=== PATIENT | male | born 1975 | race Caucasian/White ===

== ENCOUNTER 2017-12-30 22:40 | Observation (INO) ==
[2017-12-30 23:11] LABS: Basophils % 0.4 % (0.1-2.0); Eosinophils # 0.1 K/mm3 (0.0-0.4); Eosinophils % 1.4 % (0.1-12.0); Hematocrit 44.7 % (42.0-52.0); Lymphocytes # 3.5 K/mm3 (0.7-4.5); Lymphocytes % 42.4 % (10-50); Mean Corpuscular HGB Conc 33.5 g/dL (31.8-35.4); Mean Corpuscular Hemoglobin 28.5 pg (27.0-31.2); Mean Platelet Volume 6.9 fl (7.4-10.4); Monocytes # 0.4 K/mm3 (0.1-1.0); Monocytes % 5.3 % (1.7-9.3); Neutrophils # 4.1 K/mm3 (1.8-7.8); Neutrophils % 50.4 % (37.0-80.0); Platelet Count 431 K/mm3 (142-424); Red Blood Count 5.26 M/mm3 (4.60-6.20); Red Cell Distribution Width 12.8 % (11.5-17.5); White Blood Count 8.2 K/mm3 (4.8-10.8)
[2017-12-30 23:22] LABS: Anion Gap 12.5 mEq/L (5-15); Blood Urea Nitrogen 10 mg/dL (7-18); Calcium 8.8 mg/dL (8.5-10.1); Carbon Dioxide 28 mmol/L (21.0-32.0); Chloride 101 mmol/L (98-107); Glucose 97 mg/dL (74-106); Potassium 3.5 mmoL/L (3.5-5.1); Sodium 138 mmol/L (136-145)
--- NOTE | 2017-12-30 23:25 | Emergency Department Note ---
ED Disposition Clinical Impression: Muscle weakness of right upper extremity Hypertension Qualifiers: Hypertension type: essential hypertension Qualified Code(s): I10 - Essential (primary) hypertension Disposition: Admitted as Observation Condition on Discharge: Fair - Critical Care Critical Care Time: No Attestation: On 12/30/17, the high probability of a clinically significant, sudden or life threatening deterioration of the following system(s) required my full and direct attention, intervention and personal management. The time I documented below is in addition to time spent performing reported procedures but includes the following listed in this critical care notation. Medical Decision Making - Medical Records Medical records reviewed: Yes: I reviewed the patient's medical records. - Kavin Inquiry Pt receiving controlled substance: No Kavin was queried for this patient: No Vital Signs: 12/30/17 22:40 12/31/17 00:01 12/31/17 00:30 Temperature 98.0 F Temperature Source Oral Pulse Rate Pulse Rate [Right Radial] 98 H 92 H 92 H Respiratory Rate 12 18 18 Blood Pressure Blood Pressure [Right Arm] 211/136 H 196/128 H 153/105 H Blood Pressure Mean [Right Arm] 161 150 121 Blood Pressure Source Blood Pressure Source [Right Arm] Automatic Cuff Automatic Cuff Automatic Cuff Blood Pressure Position Blood Pressure Position [Right Arm] Sitting Supine Supine 02 Sat by Pulse Oximetry 97 96 96 Oxygen Delivery Method Room Air Room Air Room Air 12/31/17 01:00 12/31/17 01:30 12/31/17 01:37 Temperature 98.0 F Temperature Source Oral Pulse Rate 84 Pulse Rate [Right Radial] 84 88 Respiratory Rate 18 18 18 Blood Pressure 150/104 H Blood Pressure [Right Arm] 150/104 H 166/114 H Blood Pressure Mean [Right Arm] 119 131 Blood Pressure Source Automatic Cuff Blood Pressure Source [Right Arm] Automatic Cuff Automatic Cuff Blood Pressure Position Sitting Blood Pressure Position [Right Arm] Supine Supine 02 Sat by Pulse Oximetry 96 98 Oxygen Delivery Method Room Air Room Air Room Air - Lab Data Lab Results 12/30/17 22:55: WBC 8.2, RBC 5.26, Hgb 15.0, Hct 44.7, MCV 85.0, MCH 28.5, MCHC 33.5, RDW 12.8, Plt Count 431 H, MPV 6.9 L, Neut % (Auto) 50.4, Lymph % (Auto) 42.4, [place] % (Auto) 5.3, Eos % (Auto) 1.4, Baso % (Auto) 0.4, Neut # (Auto) 4.1, Lymph # (Auto) 3.5, [place] # (Auto) 0.4, Eos # (Auto) 0.1, Baso # (Auto) 0.0 12/30/17 22:55: Sodium 138, Potassium 3.5, Chloride 101, Carbon Dioxide 28, Anion Gap 12.5, BUN 10, Creatinine 1.02, Estimated Creat Clear 104, Estimated GFR 79, Est GFR ( Amer) 96, Glucose 97, Calcium 8.8, Troponin I < 0.02 Result diagrams: 12/30/17 22:55 12/30/17 22:55 Orders (Tests/Meds): ED MEDICATIONS Generic Name Dose Route Start Last Admin Trade Name Freq PRN Reason Stop Dose Admin Lisinopril 10 mg 12/31/17 09:00 12/31/17 01:30 Zestril 10mg Tablet PO 01/30/18 08:59 10 mg DAILY JOHNY Administration Discontinued Medications Generic Name Dose Route Start Last Admin Trade Name Freq PRN Reason Stop Dose Admin Clonidine HCl 0.2 mg 12/30/17 23:20 12/30/17 23:49 Clonidine 0.1mg Tablet PO 12/30/17 23:21 0.2 mg ONCE ONE Administration ORDERS Category Date Time Status CT head/brain wo con Stat Cat Scan 12/30/17 22:55 Taken XR chest 2V Stat Exams 12/30/17 22:52 Taken 12-lead EKG Request [ECG Request by Dr/Nse] Stat Y 12/30/17 22:55 Ordered - CT Data CT Scan: Head Time Received: 01:[address] Reviewed: Yes: I have reviewed the patient's CT results, I have viewed the radiologist's interpretation Findings Narrative: Non specific focalasymmetric density in the white matter adjacent to the frotal horn of right lateral ventricle.MRI recommended - Physician Consults Physician Consulted: Rosanne Time: 01:20 Reason -: Admission, Pt condition Comment/Response: Admit Observation Neuro HPI - General Chief Complaint: Weakness Stated Complaint: Right arm weakness Time Seen by Provider: 12/30/17 23:22 Mode of Arrival: Ambulatory Limitations: No Limitations Description of Symptoms (Recalled from ER Triage Doc. by RN): Pt reports right arm weakness that started at 0800 this morning. No motor deficits noted. Pt. denies changes in speech or other symptoms. - History of Present Illness Onset (ago): day(s) (1) Timing confirmed by: spouse Location: right arm History of same: No Severity: mild Quality: weak, constant Relieving factors: none Exacerbating factors: none Context: sudden onset On Anticoagulants: No Associated symptoms: denies other symptoms Treatments Prior to Arrival: none - Related Data Home Medications: Home Medications Medication Instructions Recorded Confirmed No Known Home Medications 12/21/17 12/30/17 Allergies/Adverse Reactions: Allergies Allergy/AdvReac Type Severity Reaction Status Date / Time No Known Allergies Allergy Verified 12/30/17 22:51 Stroke Alert/NIH Score - LOC Stroke Alert: No H History I have reviewed the patient's past medical history: Yes - Social History Smoking Status: Never smoker Alcohol Intake: never Occupational Status: employed - Psychiatric History Expresses thoughts of harming self/others: None Suicide Plan Description: No Plan Family Hx:: Non-contributory ROS Obtained: Yes All systems reviewed & no additional complaints - Constitutional Constitutional: Reports system reviewed and no additional complaints, except as docu - Eyes Eyes: Reports system reviewed and no additional complaints, except as docu - Cardiovascular Cardiovascular: Reports system reviewed and no additional complaints, except as docu - Respiratory Respiratory: Yes system reviewed and no additional complaints, except as docu - Gastrointestinal Gastrointestingal: Reports: system reviewed and no additional complaints, except as docu - Musculoskeletal Musculoskeletal: Reports muscle weakness (RUE) - Integumentary/Breasts Skin/Breast: Reports system reviewed and no additional complaints, except as docu - Neurologic Neurologic: Denies unsteadiness, Denies dizziness, Reports focal weakness, Denies headache(s), Denies numbness, Reports weakness Physical Exam - General General appearance: alert, in no apparent distress - Head Head exam: atraumatic, normocephalic, normal inspection - Eye Eye exam: Present: normal appearance, PERRL, EOMI - Respiratory Respiratory exam: Present: normal lung sounds bilaterally. Absent: respiratory distress - Cardiovascular Cardiovascular exam: Present: regular rate, normal rhythm. Absent: JVD - Abdominal Exam Abdominal exam: Present: soft, normal bowel sounds. Absent: distention, tenderness, guarding - Extremities Exam Extremities exam: Present: normal inspection, full ROM, normal capillary refill. Absent: calf tenderness - Neurological Exam Neurological exam: Present: alert, oriented X3, CN II-XII intact, normal gait, reflexes normal - Psychiatric Psychiatric exam: Present: normal affect, normal mood - Skin Skin exam: Present: warm, dry, intact, normal color
[2017-12-31 05:59] LABS: Basophils % 0.2 % (0.1-2.0); Eosinophils % 0.6 % (0.1-12.0); Hematocrit 39.1 % (42.0-52.0); Hemoglobin 13.8 g/dL (14.1-18.0); Lymphocytes # 1.6 K/mm3 (0.7-4.5); Lymphocytes % 21.7 % (10-50); Mean Corpuscular HGB Conc 35.3 g/dL (31.8-35.4); Mean Corpuscular Hemoglobin 29.8 pg (27.0-31.2); Mean Corpuscular Volume 84.5 fl (80-94); Mean Platelet Volume 6.8 fl (7.4-10.4); Monocytes # 0.4 K/mm3 (0.1-1.0); Monocytes % 4.9 % (1.7-9.3); Neutrophils # 5.4 K/mm3 (1.8-7.8); Neutrophils % 72.6 % (37.0-80.0); Platelet Count 357 K/mm3 (142-424); Red Blood Count 4.63 M/mm3 (4.60-6.20); Red Cell Distribution Width 12.7 % (11.5-17.5); White Blood Count 7.5 K/mm3 (4.8-10.8)
[2017-12-31 06:34] LABS: Anion Gap 11.8 mEq/L (5-15); Calcium 8.6 mg/dL (8.5-10.1); Chol/HDL Ratio 4.3 (1-3.5); Potassium 3.8 mmoL/L (3.5-5.1)
--- NOTE | 2017-12-31 08:35 | History & Physical Report ---
*Admission Date: 12/31/17 <Farrah Rios 12/31/17 08:39> *Chief complaint: right arm weakness <Farrah Rios 12/31/17 08:39> *History of present illness: Mr. Luis is a 42-year-old male with no significant medical history who woke up at 8 AM yesterday morning with a very weak right arm. He states he had no pain, it was just difficult for him to move his arm. He states the whole arm felt tired and weak and it remained this way throughout the day. He decided to present to the emergency room for evaluation. Upon presentation, he states his blood pressure was 211/130. He was given medication to bring down his blood pressure. He states at this time his arm is better but is still weak. He denies any chest pain or shortness of breath. He states he did have a headache yesterday. Of note he also had some type of a virus last week and was seen in the [facility] clinic. <Farrah Rios 12/31/17 08:39> [facility] History Medical History: Denies:: Diabetes Mellitus Type 2, Hyperlipidemia, Hypertension <Farrah Rios 12/31/17 08:39> Other Surgeries: Yes: No Previous Surgery <Farrah Rios 12/31/17 08:39> - *Social History Educational Level: Completed College <Farrah Rios 12/31/17 08:39> Smoking Status: Never smoker <Farrah Rios 12/31/17 08:39> Alcohol Intake: never <Farrah Rios 12/31/17 08:39> Occupational Status: employed <Farrah Rios 12/31/17 08:39> Household Members: spouse, children <Farrah Rios 12/31/17 08:39> - Psychiatric History Expresses thoughts of harming self/others: None <aFrrah Rios 12/31/17 08:39> Suicide Plan Description: No Plan <Farrah Rios 12/31/17 08:39> *Family Hx:: Coronary Artery Disease, Heart Attack, Hypertension <Farrah Rios 12/31/17 08:39> Review of Systems - Constitutional Reports headache(s), Reports weakness (right arm), Denies body ache(s) <Farrah Rios 12/31/17 08:39> - Eyes Denies blurry vision, Denies double vision <Farrah Rios 12/31/17 08:39> - ENT Denies nasal congestion, Denies sore throat <Farrah Rios 12/31/17 08:39> - *Cardiovascular Denies chest pain, Denies rapid, pounding, or irregular heartbeat <Farrah Rios 12/31/17 08:39> - *Respiratory Denies chest congestion, Denies cough, Denies shortness of breath <Farrah Rios 12/31/17 08:39> - *Gastrointestinal Denies abdominal pain, Denies loose stools, Denies nausea, Denies vomiting <Farrah Rios 12/31/17 08:39> - *Genitourinary Denies difficulty urinating, Denies painful urination <Farrah iRos 12/31/17 08:39> - *Musculoskeletal Reports muscle weakness (right arm), Denies joint pain <Farrah Rios 12/31/17 08:39> - *Neurologic Reports localized weakness, Reports headache(s), Reports weakness, Denies abnormal speech, Denies unsteadiness, Denies dizziness, Denies numbness, Denies tingling, Denies dizziness <Farrah Rios 12/31/17 08:39> Meds Home Medications Medication Instructions Recorded Confirmed Type No Known Home Medications 12/21/17 12/30/17 History <Justin Lay - 12/31/17 12:06> Allergies Allergy/AdvReac Type Severity Reaction Status Date / Time No Known Allergies Allergy Verified 12/30/17 22:51 <Justin Lay - 12/31/17 12:06> Exam Vital signs and Labs for Last 24 Hours: Temp Pulse Resp BP Pulse Ox 98.1 F 88 18 171/99 H 98 12/31/17 08:30 12/31/17 08:30 12/31/17 08:30 12/31/17 08:30 12/31/17 08:30 Laboratory Results - last 24 hr 12/30/17 22:55: WBC 8.2, RBC 5.26, Hgb 15.0, Hct 44.7, MCV 85.0, MCH 28.5, MCHC 33.5, RDW 12.8, Plt Count 431 H, MPV 6.9 L, Neut % (Auto) 50.4, Lymph % (Auto) 42.4, [place] % (Auto) 5.3, Eos % (Auto) 1.4, Baso % (Auto) 0.4, Neut # (Auto) 4.1, Lymph # (Auto) 3.5, [place] # (Auto) 0.4, Eos # (Auto) 0.1, Baso # (Auto) 0.0 12/30/17 22:55: Sodium 138, Potassium 3.5, Chloride 101, Carbon Dioxide 28, Anion Gap 12.5, BUN 10, Creatinine 1.02, Estimated Creat Clear 104, Estimated GFR 79, Est GFR ( Amer) 96, Glucose 97, Calcium 8.8, Troponin I < 0.02 12/31/17 05:10: Troponin I < 0.02 12/31/17 05:10: WBC 7.5, RBC 4.63, Hgb 13.8 L, Hct 39.1 L, MCV 84.5, MCH 29.8, MCHC 35.3, RDW 12.7, Plt Count 357, MPV 6.8 L, Neut % (Auto) 72.6, Lymph % (Auto) 21.7, [place] % (Auto) 4.9, Eos % (Auto) 0.6, Baso % (Auto) 0.2, Neut # (Auto) 5.4, Lymph # (Auto) 1.6, [place] # (Auto) 0.4, Eos # (Auto) 0.0, Baso # (Auto) 0.0 12/31/17 05:10: Sodium 139, Potassium 3.8, Chloride 103, Carbon Dioxide 28, Anion Gap 11.8, BUN 9, Creatinine 0.98, Estimated Creat Clear 108, Estimated GFR 83, Est GFR ( Amer) 101, Glucose 103, Calcium 8.6, Triglycerides 113, Cholesterol 192, LDL Cholesterol 124, VLDL Cholesterol 23, HDL Cholesterol 45, Cholesterol/HDL Ratio 4.3 H 12/31/17 11:25: Troponin I < 0.02 <Justin Lay - 12/31/17 12:06> Temp Pulse Resp BP Pulse Ox 97.4 F L 83 16 161/103 H 96 12/31/17 04:30 12/31/17 04:30 12/31/17 04:30 12/31/17 04:30 12/31/17 04:30 Laboratory Results - last 24 hr 12/30/17 22:55: WBC 8.2, RBC 5.26, Hgb 15.0, Hct 44.7, MCV 85.0, MCH 28.5, MCHC 33.5, RDW 12.8, Plt Count 431 H, MPV 6.9 L, Neut % (Auto) 50.4, Lymph % (Auto) 42.4, [place] % (Auto) 5.3, Eos % (Auto) 1.4, Baso % (Auto) 0.4, Neut # (Auto) 4.1, Lymph # (Auto) 3.5, [place] # (Auto) 0.4, Eos # (Auto) 0.1, Baso # (Auto) 0.0 12/30/17 22:55: Sodium 138, Potassium 3.5, Chloride 101, Carbon Dioxide 28, Anion Gap 12.5, BUN 10, Creatinine 1.02, Estimated Creat Clear 104, Estimated GFR 79, Est GFR ( Amer) 96, Glucose 97, Calcium 8.8, Troponin I < 0.02 12/31/17 05:10: Troponin I < 0.02 12/31/17 05:10: WBC 7.5, RBC 4.63, Hgb 13.8 L, Hct 39.1 L, MCV 84.5, MCH 29.8, MCHC 35.3, RDW 12.7, Plt Count 357, MPV 6.8 L, Neut % (Auto) 72.6, Lymph % (Auto) 21.7, [place] % (Auto) 4.9, Eos % (Auto) 0.6, Baso % (Auto) 0.2, Neut # (Auto) 5.4, Lymph # (Auto) 1.6, [place] # (Auto) 0.4, Eos # (Auto) 0.0, Baso # (Auto) 0.0 12/31/17 05:10: Sodium 139, Potassium 3.8, Chloride 103, Carbon Dioxide 28, Anion Gap 11.8, BUN 9, Creatinine 0.98, Estimated Creat Clear 108, Estimated GFR 83, Est GFR ( Amer) 101, Glucose 103, Calcium 8.6, Triglycerides 113, Cholesterol 192, LDL Cholesterol 124, VLDL Cholesterol 23, HDL Cholesterol 45, Cholesterol/HDL Ratio 4.3 H <Farrah Rios 12/31/17 08:39> I & O for Last 24 hours: Intake & Output 12/29/17 12/30/17 12/31/17 01/01/18 11:59 11:59 11:59 11:59 Weight 174 lb 13.225 oz <Justin Lay - 12/31/17 12:06> Intake & Output 12/28/17 12/29/17 12/30/17 12/31/17 11:59 11:59 11:59 11:59 Weight 174 lb 13.225 oz <Farrah Rios 12/31/17 08:39> - Constitutional no acute distress <BlancaFarrah 12/31/17 08:39> - *Routine HEENT Exam Head: Present: normocephalic <Farrah Rios 12/31/17 08:39> Eye: Present: EOMI, PERRL <BlancaFarrah 12/31/17 08:39> ENT: Present: mucous membranes moist <BlancaFarrah 12/31/17 08:39> - *Routine Neck Exam Present: supple, full ROM. Absent: lymphadenopathy <BlancaFarrah 12/31/17 08:39> - *Routine Respiratory Exam Present: CTA bilaterally <BlancaFarrah 12/31/17 08:39> - *Routine Cardiovascular Exam Present: RRR <BlancaFarrah 12/31/17 08:39> - *Routine Abdominal Exam Present: soft, normoactive bowel sounds. Absent: tenderness <BlancaFarrah 12/31/17 08:39> - *Routine Extremities Exam Absent: cyanosis, clubbing, edema <Farrah Rios 12/31/17 08:39> - *Routine Skin Exam Present: warm. Absent: rash <Farrah Rios 12/31/17 08:39> - *Routine Neurological Exam Present: alert, oriented X3, CN II-XII intact, motor deficit (weakness in the right arm), moving all extremities. Absent: altered mental status, facial asymmetry <Farrah Rios - 12/31/17 08:39> H&P: Result - Impressions CXR - nothing acute Head CT Nonspecific focal hypodensity in the white matter adjacent to the frontal horn of the right lateral ventricle. Differential diagnosis would include an area of infarction, prominent demyelinating plaque, or even a small mass lesion. Recommend CT of the head without and with contrast initially for further evaluation as MRI is not available after hours. MRI without and with contrast may eventually be needed. No acute intracranial hemorrhage <Farrah Rios - 12/31/17 08:39> Assessment and Plan (1) Abnormal head CT Current visit: Yes Status: Acute Category: Medical Code(s): R93.0 - Abnormal findings on diagnostic imaging of skull and head, not elsewhere classified (2) Hypertension Current visit: Yes Status: Acute Qualifiers: Hypertension type: essential hypertension Qualified Code(s): I10 - Essential (primary) hypertension Category: Medical Code(s): I10 - Essential (primary) hypertension (3) Muscle weakness of right upper extremity Current visit: Yes Status: Acute Category: Medical Code(s): M62.81 - Muscle weakness (generalized) <Justin Lay - 12/31/17 12:06> (1) Abnormal head CT Current visit: Yes Status: Acute Category: Medical Code(s): R93.0 - Abnormal findings on diagnostic imaging of skull and head, not elsewhere classified (2) Hypertension Current visit: Yes Status: Acute Qualifiers: Hypertension type: essential hypertension Qualified Code(s): I10 - Essential (primary) hypertension Category: Medical Code(s): I10 - Essential (primary) hypertension (3) Muscle weakness of right upper extremity Current visit: Yes Status: Acute Category: Medical Code(s): M62.81 - Muscle weakness (generalized) <Farrah Rios - 12/31/17 08:32> - Assessment and plan all Dx Assessment and Plan for all problems:: Saw patient, agree with above note. 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 He occasionally has neck discomfort. Plan to check head CT with contrast and cervical spine xrays. Continue BP management. Plan OT evaluation <Justin Lay - 12/31/17 12:06> Will discuss BP medication with Dr. Lay. Patient will likely need an MRI of the brain d/t abnormal CT scan. <Farrah Rios - 12/31/17 08:39>
--- NOTE | 2017-12-31 14:40 | Pharmacy Consult Notes ---
[facility] Pharmacy VTE Monitoring - Patient Demographics Admission date: 12/31/17 Report Date: 12/31/17 Time: 14:39 Allergies/Adverse Reactions: Patient Allergies No Known Allergies Allergy (Verified 12/30/17 22:51) Height: 1.6 m Weight: 79.3 kg Patient Problems: Current Active Problems Hypertension (Acute) Muscle weakness of right upper extremity (Acute) Abnormal head CT (Acute) - VTE Risk Labs: VTE Related Lab Results Hgb 13.8 g/dL (14.1-18.0) L 12/31/17 05:10 Hct 39.1 % (42.0-52.0) L 12/31/17 05:10 Plt Count 357 K/mm3 (142-424) 12/31/17 05:10 BUN 9 mg/dL (7-18) 12/31/17 05:10 Creatinine 0.98 mg/dL (0.70-1.30) 12/31/17 05:10 Estimated Creat Clear 108 mL/min (50-200) 12/31/17 05:10 Was VTE Risk Assessment Performed: Yes VTE Score: 2 VTE Risk Level: Very Low Risk - Prophylaxis Types of VTE Prophylaxis: TEDS Knee High (ISRA HOSE ORDER PLACED)
--- NOTE | 2017-12-31 18:09 | Progress Note ---
Internal Medicine - PN: Subj *Date: 12/31/17 *Time: 18:08 Interval history: Nurse called stating patient would like to be cared for by Dr. Reed during his inpatient stay. I spoke to Dr. Reed and he agrees to take over patient's care now. Exam Vital signs and Labs for Last 24 Hours: Temp Pulse Resp BP Pulse Ox 97.9 F 83 18 175/119 H 97 12/31/17 16:00 12/31/17 16:00 12/31/17 16:00 12/31/17 16:00 12/31/17 16:00 Laboratory Results - last 24 hr 12/30/17 22:55: WBC 8.2, RBC 5.26, Hgb 15.0, Hct 44.7, MCV 85.0, MCH 28.5, MCHC 33.5, RDW 12.8, Plt Count 431 H, MPV 6.9 L, Neut % (Auto) 50.4, Lymph % (Auto) 42.4, [place] % (Auto) 5.3, Eos % (Auto) 1.4, Baso % (Auto) 0.4, Neut # (Auto) 4.1, Lymph # (Auto) 3.5, [place] # (Auto) 0.4, Eos # (Auto) 0.1, Baso # (Auto) 0.0 12/30/17 22:55: Sodium 138, Potassium 3.5, Chloride 101, Carbon Dioxide 28, Anion Gap 12.5, BUN 10, Creatinine 1.02, Estimated Creat Clear 104, Estimated GFR 79, Est GFR ( Amer) 96, Glucose 97, Calcium 8.8, Troponin I < 0.02 12/31/17 05:10: Troponin I < 0.02 12/31/17 05:10: WBC 7.5, RBC 4.63, Hgb 13.8 L, Hct 39.1 L, MCV 84.5, MCH 29.8, MCHC 35.3, RDW 12.7, Plt Count 357, MPV 6.8 L, Neut % (Auto) 72.6, Lymph % (Auto) 21.7, [place] % (Auto) 4.9, Eos % (Auto) 0.6, Baso % (Auto) 0.2, Neut # (Auto) 5.4, Lymph # (Auto) 1.6, [place] # (Auto) 0.4, Eos # (Auto) 0.0, Baso # (Auto) 0.0 12/31/17 05:10: Sodium 139, Potassium 3.8, Chloride 103, Carbon Dioxide 28, Anion Gap 11.8, BUN 9, Creatinine 0.98, Estimated Creat Clear 108, Estimated GFR 83, Est GFR ( Amer) 101, Glucose 103, Calcium 8.6, Triglycerides 113, Cholesterol 192, LDL Cholesterol 124, VLDL Cholesterol 23, HDL Cholesterol 45, Cholesterol/HDL Ratio 4.3 H 12/31/17 11:25: Troponin I < 0.02 I & O for Last 24 hours: Intake & Output 12/29/17 12/30/17 12/31/17 01/01/18 11:59 11:59 11:59 11:59 Intake Total 480 / 480 480 / 480 Balance 480 / 480 480 / 480 Weight 174 lb 13.225 oz 174 lb 13.225 oz Assessment and Plan (1) Abnormal head CT Current visit: Yes Status: Acute Category: Medical Code(s): R93.0 - Abnormal findings on diagnostic imaging of skull and head, not elsewhere classified (2) Hypertension Current visit: Yes Status: Acute Qualifiers: Hypertension type: essential hypertension Qualified Code(s): I10 - Essential (primary) hypertension Category: Medical Code(s): I10 - Essential (primary) hypertension (3) Muscle weakness of right upper extremity Current visit: Yes Status: Acute Category: Medical Code(s): M62.81 - Muscle weakness (generalized)
[2017-12-31 18:51] LABS: Thyroid Stimulating Hormone 4.54 uIU/ml (0.358-3.740)
--- NOTE | 2017-12-31 19:49 | Progress Note ---
Internal Medicine - PN: Subj *Date: 12/31/17 *Time: 19:39 Interval history: Care transitioned to my service today at the request of family. Appreciate Dr. Lay's workup and evaluation. Brief review of history: Patient has enjoyed good health, visits his doctor in [place] very infreque ntly. Approximately 10 days ago felt poorly with some diarrhea and coughing, attended the [facility] where virus was diagnosed and it was recommended that he try DayQuil and NyQuil, which he did for about 4 days and dosed these medications fairly regularly. He notes that when he was there his blood pressure was "borderline elevated." He thinks it was in the mid 140 range systolic. He felt better and stopped the DayQuil/NyQuil treatment and then had a couple of days where he felt pretty good until he awoke on the morning of 12/29/17 with the " arm." His right hand became progressively weaker over the next day and into Tuesday when he presented to the emergency department and was admitted. Since hospitalization blood pressure has been improving slowly and nicely. He has had some progression of the weakness of the arm but no other symptoms noted. I reviewed radiology testing and report, reviewed films/CT scanning personally and gone over his lab work I performed a complete physical exam today. Exam Vital signs and Labs for Last 24 Hours: Temp Pulse Resp BP Pulse Ox 97.9 F 83 18 175/119 H 97 12/31/17 16:00 12/31/17 16:00 12/31/17 16:00 12/31/17 16:00 12/31/17 16:00 Laboratory Results - last 24 hr 12/30/17 22:55: WBC 8.2, RBC 5.26, Hgb 15.0, Hct 44.7, MCV 85.0, MCH 28.5, MCHC 33.5, RDW 12.8, Plt Count 431 H, MPV 6.9 L, Neut % (Auto) 50.4, Lymph % (Auto) 42.4, [place] % (Auto) 5.3, Eos % (Auto) 1.4, Baso % (Auto) 0.4, Neut # (Auto) 4.1, Lymph # (Auto) 3.5, [place] # (Auto) 0.4, Eos # (Auto) 0.1, Baso # (Auto) 0.0 12/30/17 22:55: Sodium 138, Potassium 3.5, Chloride 101, Carbon Dioxide 28, Anion Gap 12.5, BUN 10, Creatinine 1.02, Estimated Creat Clear 104, Estimated GFR 79, Est GFR ( Amer) 96, Glucose 97, Calcium 8.8, Troponin I < 0.02 12/31/17 05:10: Troponin I < 0.02 12/31/17 05:10: WBC 7.5, RBC 4.63, Hgb 13.8 L, Hct 39.1 L, MCV 84.5, MCH 29.8, MCHC 35.3, RDW 12.7, Plt Count 357, MPV 6.8 L, Neut % (Auto) 72.6, Lymph % (Auto) 21.7, [place] % (Auto) 4.9, Eos % (Auto) 0.6, Baso % (Auto) 0.2, Neut # (Auto) 5.4, Lymph # (Auto) 1.6, [place] # (Auto) 0.4, Eos # (Auto) 0.0, Baso # (Auto) 0.0 12/31/17 05:10: Sodium 139, Potassium 3.8, Chloride 103, Carbon Dioxide 28, Anion Gap 11.8, BUN 9, Creatinine 0.98, Estimated Creat Clear 108, Estimated GFR 83, Est GFR ( Amer) 101, Glucose 103, Calcium 8.6, Triglycerides 113, Cholesterol 192, LDL Cholesterol 124, VLDL Cholesterol 23, HDL Cholesterol 45, Cholesterol/HDL Ratio 4.3 H 12/31/17 05:10: Hemoglobin A1c 5.5 12/31/17 11:25: Troponin I < 0.02 12/31/17 11:25: Magnesium 2.1, Total Creatine Kinase 72, TSH 4.54 H I & O for Last 24 hours: Intake & Output 12/29/17 12/30/17 12/31/17 01/01/18 11:59 11:59 11:59 11:59 Intake Total 480 / 480 1200 / 1200 Balance 480 / 480 1200 / 1200 Weight 174 lb 13.225 oz 174 lb 13.225 oz Narrative: Patient is pleasant, awake, oriented x3. When I talk with patient his speech seems thick although his family seems to think it is about his baseline. I also note that his right nasolabial fold is flattened. His stepdaughter agrees, his thinks it is about the same. When patient smiles he also has lower right-sided lip margins that are also notable when he bears his teeth. Eyelid closure strength and opening is normal. Hearing is normal by finger rubbing bilaterally. Shoulder shrug is intact. Oropharynx clear, palatal elevation intact, tongue movements intact. Extraocular motions are intact bilaterally and pupillary reactivity is normal bilaterally. His most obvious defect is right sided arm weakness. He has 3/5 strength in the arm flexors/bicep area and the triceps strength area. He has reduced manager contracting strength on the right. Finger flexion is also 3/5. Bicep reflex is reduced as is triceps reflex and brachioradialis reflex on the right. Left arm strength is 5/5 and reflexes are 2+. Lower extremities are symmetric at 5/5 strength and normal reflexes. Romberg sign is negative. He has pronator drifting on the right when Romberg's testing is being performed. Gait however, is normal. Heart rate is regular, lungs clear. Abdomen soft, no peripheral edema in his feet. Slight puffiness in the right hand. Assessment and Plan (1) Abnormal head CT Current visit: Yes Status: Acute Category: Medical Code(s): R93.0 - Abnormal findings on diagnostic imaging of skull and head, not elsewhere classified (2) Hypertension Current visit: Yes Status: Acute Qualifiers: Hypertension type: essential hypertension Qualified Code(s): I10 - Essential (primary) hypertension Category: Medical Code(s): I10 - Essential (primary) hypertension (3) Muscle weakness of right upper extremity Current visit: Yes Status: Acute Category: Medical Code(s): M62.81 - Muscle weakness (generalized) (4) Right-sided lacunar infarction Current visit: Yes Status: Acute Category: Medical Code(s): I63.81 - Other cerebral infarction due to occlusion or stenosis of small artery Patient symptom constellation associated with hypertension after being treated with decongestant containing cold medications along with abnormal CT scan in the right ventricular area with the speech/dysarthria symptoms and his right arm weakness are consistent with lacunar infarct. I discussed with his family including his , stepdaughter and in-laws that this is a tentative diagnosis but seems to make the most sense given the events of the past couple of days. I agree with very gradual blood pressure reduction and I will continue lisinopril but make it twice daily dosing. I will institute Lovenox therapy given the ischemic nature of this event. If blood pressure is acceptable tomorrow morning patient might be able to be discharged with outpatient MRI, echocardiogram and carotid Dopplers set up. If deterioration occurs he may need transfer to a tertiary care center. I have ordered laboratory studies to rule out unusual cases of mononeuropathy such as an A1c, TSH and B12 levels. I discussed with him there could be other etiologies for this including multiple sclerosis or ALS but this would depend on clinical examinations on an ongoing basis and MRI testing.
[2017-12-31 20:15] LABS: Chol/HDL Ratio 4.4 (1-3.5)
[2018-01-01 06:39] LABS: Basophils % 0.6 % (0.1-2.0); Eosinophils # 0.1 K/mm3 (0.0-0.4); Eosinophils % 1.8 % (0.1-12.0); Hematocrit 38.6 % (42.0-52.0); Hemoglobin 14.1 g/dL (14.1-18.0); Mean Corpuscular HGB Conc 36.4 g/dL (31.8-35.4); Mean Corpuscular Hemoglobin 30.8 pg (27.0-31.2); Mean Corpuscular Volume 84.6 fl (80-94); Mean Platelet Volume 7.2 fl (7.4-10.4); Monocytes # 0.4 K/mm3 (0.1-1.0); Monocytes % 6.7 % (1.7-9.3); Neutrophils # 2.9 K/mm3 (1.8-7.8); Platelet Count 332 K/mm3 (142-424); Red Blood Count 4.56 M/mm3 (4.60-6.20); Red Cell Distribution Width 12.9 % (11.5-17.5); White Blood Count 5.4 K/mm3 (4.8-10.8)
[2018-01-01 06:58] LABS: Albumin Level 3.6 gm/dL (3.4-5.0); Anion Gap 11.7 mEq/L (5-15); Bilirubin,Total 0.9 mg/dL (0.2-1.0); Calcium 8.7 mg/dL (8.5-10.1); Globulin 3.6 gm/dl (1.3-3.2); Potassium 3.7 mmoL/L (3.5-5.1); Total Protein,Serum 7.2 gm/dL (6.4-8.2)
--- NOTE | 2018-01-01 08:42 | Discharge Summary ---
General - General Admission date:: 12/31/17 Discharge date: 01/01/18 HPI HPI: Brief review of history: Patient has enjoyed good health, visits his doctor in [place] very infrequently. Approximately 10 days ago felt poorly with some diarrhea and co ughing, attended the [facility] center where virus was diagnosed and it was recommended that he try DayQuil and NyQuil, which he did for about 4 days and dosed these medications fairly regularly. He notes that when he was there his blood pressure was "borderline elevated." He thinks it was in the mid 140 range systolic. He felt better and stopped the DayQuil/NyQuil treatment and then had a couple of days where he felt pretty good until he awoke on the morning of 12/29/17 with the " arm." His right hand became progressively weaker over the next day and into Tuesday when he presented to the emergency department and was admitted. Since hospitalization blood pressure has been improving slowly and nicely. He has had some progression of the weakness of the arm but no other symptoms noted. I reviewed radiology testing and report, reviewed films/CT scanning personally and gone over his lab work Hospital Course Hospital Course: Upon transition to my service I initiated anticoagulation therapy with Plavix and Lovenox. Continued good blood pressure regimen. Patient blood pressure has continued to improve and is now in the 130s systolic. I discussed CT scanning and further workup with patient and his . I think the patient may have a lacunar infarct with the hand/arm/dysarthria syndrome, and ischemic insult seems most likely given the isolated nature of his defect along with the right shoulder droop and the lack of pain or orthopedic or neuropathic symptoms. This morning patient felt much better after a better night sleep, he also noted that his arm was certainly not worse and in fact perhaps he could raise it just a little bit better, although his hand continued to droop when he puts his hand out in front of him. Regardless he is certainly stable and able to be transition to outpatient workup. Plan will be to discharge home on lisinopril and Plavix. I will see him in my office tomorrow to arrange outpatient MRI, carotid Doppler and echocardiogram as well as to monitor his blood pressure. Objective Vital signs: Temp Pulse Resp BP Pulse Ox 97.7 F 73 16 132/92 H 96 01/01/18 04:00 01/01/18 04:00 01/01/18 04:00 01/01/18 04:00 01/01/18 04:00 Narrative: Patient is awake, alert, right facial droop to my exam continues, although his continues to think this is not much different over his baseline. Cardiopulmonary assessment unremarkable with clear lungs and regular heart rate. Blood pressure much improved. Abdomen is soft and nontender. 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 No lower extremity deficits. Results Labs on day of discharge: Labs from last 24 hours 01/01/18 01/01/18 12/31/17 06:30 06:30 11:25 WBC 5.4 D RBC 4.56 L Hgb 14.1 Hct 38.6 L MCV 84.6 MCH 30.8 MCHC 36.4 H RDW 12.9 Plt Count 332 MPV 7.2 L Neut % (Auto) 54.0 Lymph % (Auto) 37.0 [place] % (Auto) 6.7 Eos % (Auto) 1.8 Baso % (Auto) 0.6 Neut # (Auto) 2.9 Lymph # (Auto) 2.0 [place] # (Auto) 0.4 Eos # (Auto) 0.1 Baso # (Auto) 0.0 Sodium 137 Potassium 3.7 Chloride 103 Carbon Dioxide 26 Anion Gap 11.7 BUN 9 Creatinine 0.99 Estimated Creat Clear 107 Estimated GFR 82 Est GFR ( Amer) 99 Glucose 87 Hemoglobin A1c Calcium 8.7 Magnesium Total Bilirubin 0.9 AST 15 ALT 43 Alkaline Phosphatase 52 Total Creatine Kinase Troponin I Total Protein 7.2 Albumin 3.6 Globulin 3.6 H Albumin/Globulin Ratio 1.0 L Triglycerides 151 Cholesterol 200 LDL Cholesterol 125 VLDL Cholesterol 30 HDL Cholesterol 45 Cholesterol/HDL Ratio 4.4 H TSH 12/31/17 12/31/17 12/31/17 11:25 11:25 05:10 WBC RBC Hgb Hct MCV MCH MCHC RDW Plt Count MPV Neut % (Auto) Lymph % (Auto) [place] % (Auto) Eos % (Auto) Baso % (Auto) Neut # (Auto) Lymph # (Auto) [place] # (Auto) Eos # (Auto) Baso # (Auto) Sodium Potassium Chloride Carbon Dioxide Anion Gap BUN Creatinine Estimated Creat Clear Estimated GFR Est GFR ( Amer) Glucose Hemoglobin A1c 5.5 Calcium Magnesium 2.1 Total Bilirubin AST ALT Alkaline Phosphatase Total Creatine Kinase 72 Troponin I < 0.02 Total Protein Albumin Globulin Albumin/Globulin Ratio Triglycerides Cholesterol LDL Cholesterol VLDL Cholesterol HDL Cholesterol Cholesterol/HDL Ratio TSH 4.54 H DS: Diagnosis - Discharge Diagnosis (1) Abnormal head CT Status: Acute (2) Hypertension Status: Acute (3) Muscle weakness of right upper extremity Status: Acute (4) Right-sided lacunar infarction Status: Acute Discharge Plan - Patient Discharge Instructions ACTIVITY: Continue current activity DIET: continue same diet Patient Instructions: High Blood Pressure - Follow up Plan Follow up with: Jose Reed MD [Staff Physician] - Disposition: Home, Self-Care Prescriptions/Medication Reconciliation: No Action No Known Home Medications
== END 2018-01-01 11:00 | disposition home or self-care (01) ==
LOC: 2ND 22:40 → ER 22:40 → OBSVTOIN 12-31 02:24 → INTOOBSV 12-31 02:24 → 2ND 12-31 02:25
PROVIDERS: ADMIT Family Medicine; ATTEND Internal Medicine Adolescent Medicine
CPT/HCPCS: 36415; 70450; 70470; 71020; 71046; 72050; 80048; 80053; 80061; 82550; 82607; 82652; 83036; 83735; 84443; 84484; 85025; 93005; 99285; G0378; Q9967

== ENCOUNTER → 2018-01-04 07:49 | Outpatient (CLI) | payer BC, SELFPAY ==
--- NOTE | 2018-01-04 07:58 | MR_ITS ---
MR head/brain wo con HISTORY: Right arm weakness ITS.REASON: ISCHEMIC STROKE ORDERING PHYSICIAN: Jose Reed MD PATIENT AGE: 42 years Comparison: None TECHNIQUE: Standard multiplanar multiecho sequences are performed without contrast. FINDINGS: There is a small area of increase diffusion signal and decreased ADC signal within the left putamen posteriorly consistent with an area of acute infarction. This measures 13 x 9 mm. This extends superiorly into the cool radiata. No other area of acute infarction is evident. There are scattered periventricular and subcortical T2 white matter hyperintensities consistent with ischemic gliotic change from microvascular disease. There is an old lacunar infarction in the right putamen anteriorly. No midline shift or mass effect. No acute intracranial hemorrhage. The cerebellopontine angle, cerebellum, and brainstem are unremarkable. The pituitary, optic chiasm, and craniocervical junction are unremarkable. IMPRESSION: 1. Acute lacunar infarction of the left basal ganglia extending into the cool radiata 2. Old lacunar infarction of the putamen with periventricular ischemic gliotic change. This accounts for the abnormality noted on the CT scan
== END ==
PROVIDERS: PCP Internal Medicine Adolescent Medicine; Visit Provider Internal Medicine Adolescent Medicine
DX: I63.9 Cerebral infarction, unspecified (principal)
CPT/HCPCS: 70551

== ENCOUNTER → 2018-01-06 12:39 | Outpatient (CLI) | payer BC, SELFPAY ==
--- NOTE | 2018-01-06 12:46 | CI_ITS ---
Cerebrovascular Exam Indications: 434.91 Cerebral artery occlusion unspecified with cerebral infarction. IMPRESSIONS 1. The bilateral vertebral arteries are patent with normal antegrade flow. 2. Study suggests 20% stenosis involving the right internal carotid artery. 3. Study suggests less than 20% stenosis involving the left internal carotid artery. History: Right-sided weakness. Risk factors: Hypertension. Carotid duplex study. Complete study and Doppler flow study including spectral analysis, color and gomez scale imaging. Height: Height: 160cm. Height: 63in. Weight: Weight: 81.6kg. Weight: 179.6lb. Body mass index: BMI: 31.9kg/m^2. Body surface area: BSA: 1.94m^2. Location: Vascular laboratory. Patient status: Outpatient. Tables: Arterial flow: + +--------+--------+ Location V sys V ed + +--------+--------+ Right CCA - proximal 104cm/s 27.5cm/s + +--------+--------+ Right CCA - distal 80.5cm/s 26.5cm/s + +--------+--------+ Right ECA 108cm/s -------- + +--------+--------+ Right ICA - proximal 94.3cm/s 37.1cm/s + +--------+--------+ Right ICA - mid 91.8cm/s 45.3cm/s + +--------+--------+ Right ICA - distal 104cm/s 45.6cm/s + +--------+--------+ Right vertebral 45.9cm/s -------- + +--------+--------+ Left CCA - proximal 118cm/s 30.6cm/s + +--------+--------+ Left CCA - distal 109cm/s 32.2cm/s + +--------+--------+ Left ECA 104cm/s -------- + +--------+--------+ Left ICA - proximal 77.5cm/s 31.4cm/s + +--------+--------+ Left ICA - mid 78.2cm/s 37cm/s + +--------+--------+ Left ICA - distal 76.8cm/s 37cm/s + +--------+--------+ Left vertebral 42.7cm/s -------- + +--------+--------+ Velocity ratios: + + + + + + Right, V sys Right, V ed Left, V sys Left, V ed + + + + + + Max ICA/dist CCA 1.29 1.72 0.72 1.15 + + + + + + (Report amended ) Electronically signed by: Errol Oswald [id number]
== END ==
PROVIDERS: PCP Internal Medicine Adolescent Medicine; Visit Provider Internal Medicine Adolescent Medicine
DX: I63.9 Cerebral infarction, unspecified (principal)
CPT/HCPCS: 93880

== ENCOUNTER → 2018-01-17 13:54 | Outpatient (CLI) | payer BC, SELFPAY ==
--- NOTE | 2018-01-17 14:05 | CA_ITS ---
PROCEDURE: 2-D M-mode and color Doppler study INDICATIONS FOR THE TEST: Chest pain COPD Heart Murmur Tobacco Smoking Palpitations Fatigue+ Syncope Edema Hypertension+Diabetes Mellitus Rheumatic Fever SOB WICK Obesity Hyperlipidemia Family History HD Additional History CVA Ordered as a bubble study PATIENT INFORMATION HEIGHT: 64 WEIGHT: 180 GENDER: Male B/P: 132/92 2-D/M-MODE INTERPRETATION: 2-D MEASUREMENTS OBSERVED VALUES IN CMS Right Ventricular Dimension (RVDd) 2.7 Interventricular Septum (Thickness)(IVsd) 0.9 Left Ventricular Internal Dimensions(LVIDd) 4.4 Left Ventricular Posterior Wall (Thickness)(LVPWd) 0.9 Aortic Root 3.3 Aortic Cusp Separation 2.6 Left Atrial Dimensions (LAD) 2.8 2D 1. Left atrium is mildly enlarged, left ventricle is normal size, mild concentric left ventricular hypertrophy, visually estimated ejection fraction 55% with no regional wall motion abnormality. 2. The right atrium and right ventricle are normal size and contractility. 3. The aortic valve is minimally thickened and fibrosed. 4. The mitral and tricuspid valvular grossly normal. 5. The pulmonic valve is poorly visualized. 6. No significant pericardial effusion noted. DOPPLER INTERROGATION: Doppler interrogation of the aortic, mitral and tricuspid valvular presence of mild mitral and tricuspid regurgitation, tricuspid regurgitation jet velocity is inadequate for calculation of the right ventricular systolic pressure, grade 1 diastolic dysfunction seen with tissue Doppler evidence of raised left atrial pressure. Agitated saline contrast study fails to identify intracardiac shunt. CONCLUSION: 1. Mildly enlarged left atrium, normal left ventricular size, mild concentric left ventricular hypertrophy, visually estimated ejection fraction 55% with no regional wall motion abnormality, grade 1 diastolic dysfunction seen with tissue Doppler evidence of raised left atrial pressure. 2. Mild mitral and tricuspid regurgitation 3. Agitated saline contrast study fails to identify intracardiac shunt.
== END ==
PROVIDERS: PCP Internal Medicine Adolescent Medicine; Visit Provider Internal Medicine Adolescent Medicine
DX: I10 Essential (primary) hypertension (principal); I63.9 Cerebral infarction, unspecified
CPT/HCPCS: 93306

== ENCOUNTER → 2018-07-24 10:09 | Outpatient (CLI) | payer BC, SELFPAY ==
[2018-07-24 10:47] LABS: Basophils % 0.4 % (0.1-2.0); Eosinophils # 0.2 K/mm3 (0.0-0.4); Eosinophils % 4.1 % (0.1-12.0); Hemoglobin 14.1 g/dL (14.1-18.0); Lymphocytes # 1.8 K/mm3 (0.7-4.5); Lymphocytes % 34.7 % (10-50); Mean Corpuscular HGB Conc 35.3 g/dL (31.8-35.4); Mean Corpuscular Hemoglobin 29.1 pg (27.0-31.2); Mean Corpuscular Volume 82.3 fl (80-94); Mean Platelet Volume 7.5 fl (7.4-10.4); Monocytes # 0.2 K/mm3 (0.1-1.0); Neutrophils # 2.9 K/mm3 (1.8-7.8); Neutrophils % 56.8 % (37.0-80.0); Platelet Count 306 K/mm3 (142-424); Red Blood Count 4.86 M/mm3 (4.60-6.20); Red Cell Distribution Width 12.3 % (11.5-17.5); White Blood Count 5.2 K/mm3 (4.8-10.8)
[2018-07-24 11:46] LABS: Alanine Aminotransferase 56 U/L (12-78); Albumin Level 3.9 gm/dL (3.4-5.0); Albumin/Globulin Ratio 1.2 (1.1-1.8); Alkaline Phosphatase 54 U/L (46-116); Anion Gap 13.3 mEq/L (5-15); Aspartate Amino Transferase 25 U/L (15-37); Bilirubin,Total 0.6 mg/dL (0.2-1.0); Blood Urea Nitrogen 10 mg/dL (7-18); Calcium 8.9 mg/dL (8.5-10.1); Carbon Dioxide 28 mmol/L (21.0-32.0); Chloride 104 mmol/L (98-107); Chol/HDL Ratio 2.3 (1-3.5); Cholesterol 129 mg/dL (140-200); Creatinine,Serum 0.99 mg/dL (0.70-1.30); Estimated Glomerular Filt Rate 82 ml/min (>60); GFR (African American) 99 ML/MIN (>60); Globulin 3.2 gm/dl (1.3-3.2); Glucose 93 mg/dL (74-106); HDL Cholesterol 56 mg/dL (27-67); LDL Cholesterol 64 mg/dL (0-130); Potassium 4.3 mmoL/L (3.5-5.1); Sodium 141 mmol/L (136-145); Total Protein,Serum 7.1 gm/dL (6.4-8.2); Triglycerides 44 mg/dL (30-200); VLDL Cholesterol 9 mg/dL (0-40)
== END ==
PROVIDERS: Visit Provider Internal Medicine Adolescent Medicine
DX: I63.81 Other cerebral infarction due to occlusion or stenosis of small artery (principal); I10 Essential (primary) hypertension
CPT/HCPCS: 36415; 80053; 80061; 85025

== ENCOUNTER 2019-01-04 08:01 | Outpatient (RCR) | payer BC, SELFPAY ==
--- NOTE | 2019-01-04 09:06 | HMH.OTOPEV ---
OT Inpatient Evaluation Rehab OT Outpatient Eval Start: 01/04/19 08:54 Freq: Status: Active Protocol: Document 01/04/19 08:55 TFRY (Rec: 01/04/19 09:06 TFRY [id number]) Electronically Signed By Irma Priest, OT 01/04/19 08:55 Outpatient Therapy Subjective History Subjective History This is a 43 year old right handed male referred to occupational therapy for weakness of right upper extremity. Patient reported that he had a stroke 1 year ago. He reports that he went to ER later in day as he noticed some weakness earlier but did not go until he was unable to use his right hand. He reports now that he doesn' t have any pain just some stiffness in digits 4 and 5. Fine Motor Coordination Tested - 9 Hole Peg Test - Right 30 secs Chief Complaint Stiff Prior Functional Limitations None Current Functional Limitations None Level of pain today (0-10) 0 Pain scale - at its best (0-10) 0 Pain scale - at its worst (0-10) 0 Shoulder/Elbow Eval Shoulder Objective Measurements Shoulder ROM Right Shoulder Abduction Active Range of WFL Motion (degrees) Shoulder Flexion Active Range of Motion WFL (degrees) Query Text: Shoulder External Rotation Active Range WFL of Motion (degrees) Shoulder Internal Rotation Active Range WFL of Motion (degrees) Shoulder Extension Active Range of WFL Motion (degrees) full ROM shoulder exam standard right Shoulder MMT Shoulder Strength Reason Not Measured WFL Elbow Objective Measurements Elbow ROM Right full ROM elbow exam standard right Elbow MMT Elbow/Forearm Strength Reason Not WFL Measured Wrist/Hand Eval Wrist Range of Motion Wrist ROM Reason Not Measured Within Functional Limits Wrist Manual Muscle Testing Right Wrist Strength Reason Not Measured WFL Model Photographers'/Pinch Strength Model Photographers' Strength Measurement (lbs) 12 Palmar Pinch (3-point) Ability Normal Performance Palmar Pinch (3-point) Strength 10 Measurement (lbs) Tip Pinch (2-point) Ability Normal Performance Tip Pinch (2-point) Strength Measurement 6 (lbs) Lateral Pinch Ability Normal Performance Lateral Pinch Strength Measurement (lbs) 14 OT Outpatient Assessment Prognosis Rehab Potential Innap
== END 2019-01-04 08:05 | disposition home or self-care (01) ==
LOC: OT 08:01
PROVIDERS: PCP Internal Medicine Adolescent Medicine; Visit Provider Internal Medicine Adolescent Medicine
DX: R29.898 Other symptoms and signs involving the musculoskeletal system (principal)
CPT/HCPCS: 97166

== ENCOUNTER → 2020-07-09 10:26 | Outpatient (CLI) | payer BC, SELFPAY ==
[2020-07-09 11:20] LABS: Chloride 103 mmol/L (98-107); Potassium 4.4 mmoL/L (3.5-5.1); Sodium 140 mmol/L (136-145)
[2020-07-09 11:22] LABS: Alanine Aminotransferase 12 U/L (12-78); Aspartate Amino Transferase 20 U/L (17-59); Blood Urea Nitrogen 10 mg/dl (9-20); Estimated Glomerular Filt Rate 72 ml/min (>60); GFR (African American) 87 ML/MIN (>60)
[2020-07-09 11:23] LABS: Albumin Level 4.7 g/dl (3.5-5.0); Albumin/Globulin Ratio 1.7 (1.1-1.8); Alkaline Phosphatase 51 U/L (38-126); Anion Gap 12.4 mEq/L (5-15); Bilirubin,Total 0.5 mg/dl (0.2-1.3); Calcium 9.7 mg/dl (8.4-10.2); Carbon Dioxide 29 mmol/L (22.0-30.0); Chol/HDL Ratio 4.2 (1-3.5); Cholesterol 227 mg/dl (140-200); Globulin 2.8 g/dL (1.3-3.2); Glucose 97 mg/dl (74-100); HDL Cholesterol 54 mg/dl (40-60); Total Protein,Serum 7.5 g/dl (6.3-8.2); Triglycerides 130 mg/dl (30-150); VLDL Cholesterol 26 mg/dL (0-40)
[2020-07-09 11:34] LABS: Direct LDL Cholesterol 139.95 mg/dL (100-129)
== END ==
PROVIDERS: Visit Provider Internal Medicine Adolescent Medicine
DX: I63.81 Other cerebral infarction due to occlusion or stenosis of small artery (principal); I10 Essential (primary) hypertension
CPT/HCPCS: 36415; 80053; 80061

== ENCOUNTER → 2020-09-15 10:31 | Outpatient (CLI) | payer BC, SELFPAY ==
[2020-09-15 11:01] LABS: Basophils % 0.3 % (0.1-2.0); Eosinophils # 0.1 K/mm3 (0.0-0.4); Eosinophils % 1.3 % (0.1-12.0); Hematocrit 39.3 % (42.0-52.0); Hemoglobin 13.3 g/dL (14.1-18.0); Lymphocytes # 1.9 K/mm3 (0.7-4.5); Lymphocytes % 26.3 % (10-50); Mean Corpuscular HGB Conc 33.9 g/dL (31.8-35.4); Mean Corpuscular Hemoglobin 28.5 pg (27.0-31.2); Mean Corpuscular Volume 84.1 fl (80-94); Monocytes # 0.4 K/mm3 (0.1-1.0); Monocytes % 4.9 % (1.7-9.3); Neutrophils % 67.2 % (37.0-80.0); Platelet Count 333 K/mm3 (142-424); Red Blood Count 4.68 M/mm3 (4.60-6.20); Red Cell Distribution Width 12.5 % (11.5-17.5); White Blood Count 7.4 K/mm3 (4.8-10.8)
[2020-09-15 12:00] LABS: Alanine Aminotransferase 23 U/L (12-78); Albumin Level 4.6 g/dl (3.5-5.0); Albumin/Globulin Ratio 1.6 (1.1-1.8); Alkaline Phosphatase 57 U/L (38-126); Anion Gap 13.4 mEq/L (5-15); Aspartate Amino Transferase 24 U/L (17-59); Bilirubin,Total 0.6 mg/dl (0.2-1.3); Blood Urea Nitrogen 14 mg/dl (9-20); Calcium 9.1 mg/dl (8.4-10.2); Carbon Dioxide 29 mmol/L (22.0-30.0); Chloride 101 mmol/L (98-107); Estimated Glomerular Filt Rate 80 ml/min (>60); GFR (African American) 97 ML/MIN (>60); Globulin 2.8 g/dL (1.3-3.2); Glucose 100 mg/dl (74-100); Magnesium 1.7 mg/dl (1.6-2.3); Potassium 4.4 mmoL/L (3.5-5.1); Sodium 139 mmol/L (136-145); Total Protein,Serum 7.4 g/dl (6.3-8.2)
[2020-09-15 12:29] LABS: Thyroid Stimulating Hormone 1.63 uIU/mL (0.465-4.68)
== END ==
PROVIDERS: Visit Provider Internal Medicine Adolescent Medicine
DX: R55 Syncope and collapse (principal); I10 Essential (primary) hypertension
CPT/HCPCS: 36415; 80053; 83735; 84443; 85025

== ENCOUNTER 2023-07-09 09:19 | Outpatient (CLI) | payer BC, SELFPAY ==
[2023-07-09 09:45] LABS: Basophils % 0.5 % (0.1-2.0); Eosinophils # 0.1 K/mm3 (0.0-0.4); Hematocrit 40.6 % (42.0-52.0); Hemoglobin 13.6 g/dL (14.1-18.0); Lymphocytes # 2.2 K/mm3 (0.7-4.5); Lymphocytes % 35.3 % (10-50); Mean Corpuscular HGB Conc 33.6 g/dL (31.8-35.4); Mean Corpuscular Hemoglobin 29.9 pg (27.0-31.2); Mean Corpuscular Volume 88.9 fl (80-94); Mean Platelet Volume 8.3 fl (7.4-10.4); Monocytes # 0.3 K/mm3 (0.1-1.0); Neutrophils # 3.5 K/mm3 (1.8-7.8); Neutrophils % 57.2 % (37.0-80.0); Platelet Count 309 K/mm3 (142-424); Red Blood Count 4.57 M/mm3 (4.60-6.20); Red Cell Distribution Width 13.2 % (11.5-17.5); White Blood Count 6.1 K/mm3 (4.8-10.8)
[2023-07-09 10:21] LABS: Alanine Aminotransferase 31 U/L (12-78); Albumin Level 3.9 g/dl (3.5-5.0); Albumin/Globulin Ratio 1.3 (1.1-1.8); Alkaline Phosphatase 50 U/L (38-126); Anion Gap 9.3 mEq/L (5-15); Aspartate Amino Transferase 27 U/L (17-59); Bilirubin,Total 0.7 mg/dl (0.2-1.3); Blood Urea Nitrogen 13 mg/dl (9-20); Calcium 9.3 mg/dl (8.4-10.2); Carbon Dioxide 29 mmol/L (22.0-30.0); Chloride 106 mmol/L (98-107); Chol/HDL Ratio 2.2 (1-3.5); Cholesterol 121 mg/dl (140-200); Estimated Glomerular Filt Rate 79 ml/min (>60); GFR (African American) 96 ML/MIN (>60); Globulin 2.9 g/dL (1.3-3.2); Glucose 98 mg/dl (74-100); HDL Cholesterol 54 mg/dl (40-60); Potassium 4.3 mmoL/L (3.5-5.1); Sodium 140 mmol/L (136-145); Total Protein,Serum 6.8 g/dl (6.3-8.2); Triglycerides 61 mg/dl (30-150); VLDL Cholesterol 12 mg/dL (0-40)
[2023-07-09 10:31] LABS: Direct LDL Cholesterol 59.01 mg/dL (100-129)
[2023-07-09 11:06] LABS: Hemoglobin A1C 5.5 % (4.0-6.0)
[2023-07-11 13:42] LABS: Vitamin B12 229 pg/mL (239-931)
[2023-07-11 17:15] LABS: Iron 91 ug/dL (49-181)
[2023-07-11 17:24] LABS: Total Iron Binding Capacity 336 ug/dL (261-462)
== END 2023-07-09 23:59 | disposition home or self-care (01) ==
LOC: LAB 09:22
PROVIDERS: PCP Internal Medicine Adolescent Medicine; Visit Provider Nurse Practitioner Family
DX: E78.5 Hyperlipidemia, unspecified (principal); I10 Essential (primary) hypertension; R73.03 Prediabetes; I63.81 Other cerebral infarction due to occlusion or stenosis of small artery; D64.9 Anemia, unspecified
CPT/HCPCS: 36415; 80053; 80061; 82607; 83036; 83540; 83550; 85025

== ENCOUNTER 2023-08-05 16:35 | Outpatient (CLI) | payer BC, SELFPAY ==
--- NOTE | 2023-08-05 16:39 | XR_ITS ---
PROCEDURE INFORMATION: Exam: XR Right Foot Exam date and time: 08/05/2023 4:40 PM Age: 48 years old Clinical indication: Pain; Foot; Right; Additional info: Right foot pain; States he dropped a steel frame on foot x1 week ago, pain not subsiding TECHNIQUE: Imaging protocol: Radiologic exam of the right foot. Views: 3 or more views. COMPARISON: No relevant prior studies available. FINDINGS: Bones/joints: There is a plantar calcaneal enthesophyte. The osseous structures appear intact with no evidence of acute fracture, dislocation, or malalignment. Joint spaces are preserved. No abnormal bone density or destructive lesions are noted. Soft tissues: Soft tissues appear unremarkable. IMPRESSION: At the time of imaging, there is no evidence for acute osseous abnormalities.
== END 2023-08-05 23:59 | disposition home or self-care (01) ==
LOC: RAD 16:36
PROVIDERS: PCP Internal Medicine Adolescent Medicine; Visit Provider Nurse Practitioner Family
DX: M79.671 Pain in right foot (principal)
CPT/HCPCS: 73630

== ENCOUNTER 2024-10-26 17:42 | Outpatient (CLI) | payer OTHER, SELFPAY ==
[2024-10-26 20:23] LABS: Coronavirus 19, PCR Not Detected (NotDetected); Influenza A, PCR Not Detected (NotDetected); Influenza B, PCR Not Detected (NotDetected)
== END 2024-10-26 23:59 ==
LOC: LAB.DROPOF 10-29 10:19
PROVIDERS: PCP Student in an Organized Health Care Education/Training Program; Visit Provider Student in an Organized Health Care Education/Training Program
DX: R52 Pain, unspecified (principal)
CPT/HCPCS: 87636